=== PATIENT | male | born 1945 | race Caucasian/White ===

== ENCOUNTER 2017-12-11 07:41 | Day surgery (SDC) | payer OTHER ==
[2017-12-11] MEDS ORDERED: NS 500 ML IV ONE (07:44)
[2017-12-11] MEDS ORDERED: BENZOCAINE UNIT DOSE SPRAY HURRICAINE MM ONE (07:44)
[2017-12-11] MEDS ORDERED: MIDAZOLAM 2 MG/2 ML VIAL IVP ONE (07:44)
[2017-12-11] MEDS ORDERED: fentaNYL 100 MCG/2 ML INJ IVP ONE (07:44)
[2017-12-11] MEDS ORDERED: ATROPINE SULFATE 1 MG/10 ML SYR ONE (08:15)
--- NOTE | 2017-12-11 08:45 | PDANEPAE ---
ANE History of Present Illness CHARLES ANE Past Medical History - Cardiovascular History Hx Arrhythmias: No Hx CHF / Valvular Disease: Yes - Pulmonary History Hx Oxygen in Use at Home: No Hx Sleep Apnea: No - Renal History Hx Renal Disorders: Yes - Neurological & Psychiatric Hx Neurological / Psychiatric History Comment: BPV ANE Review of Systems Review of systems is: negative Review of Systems: - Exercise capacity METS (RN): 4 METS ANE Patient History - Allergies Allergies/Adverse Reactions: KIWEIT Allergy (Intermediate, Uncoded 04/30/12 15:49) LIPS AND TONGUE ESTES SWORDFISH Allergy (Intermediate, Uncoded 04/30/12 15:49) LIP AND TONGUE ESTES POLLEN Allergy (Mild, Uncoded 04/30/12 15:49) NASAL CONGESTION - Home Medications Home medications: home medication list seen and reviewed Home Medications: No Medications [No Meds] 1 ea [facility] 04/23/12 [Last Taken Unknown] - NPO status NPO Status: no food or drink >8 hours - Anes Hx Anes Hx: no prior problems - Smoking Hx Smoking Status: Former smoker - Family Anes Hx Family Anes Hx: none ANE Labs/Vital Signs - Vital Signs Vital Signs: reviewed preoperatively; see RN documention for details Height: 175.26 cm Weight: 67.132 kg ANE Physical Exam - Airway Neck exam: FROM Mallampati Score: Class 1 Mouth exam: normal dental/mouth exam - Pulmonary Pulmonary: no respiratory distress - Cardiovascular Cardiovascular: regular rate and rhythym - ASA Status ASA Status: II ANE Anesthesia Plan Total IV Anesthesia: Yes Urgent/Emergent Case: Ross thacker completed preop but documented later for safe timely pt care
--- NOTE | 2017-12-11 08:45 | POSTANESTH ---
Post Anesthetic Evaluation Cardiovascular Status: Similar to Pre-Op Cond Respiratory Status: Normal, Stable, Similar to Pre-op Cond. Level of Consciousness/Mental Status: Can Participate in Eval, Moderately Sleepy Pain Control: Adequate, Prn Tx Ordered Nausea/Vomiting Control: Adequate, Prn Tx Ordered Complications Possibly Related to Anesthesia: None Noted
[2017-12-11] MEDS ORDERED: PROPOFOL 200 MG/20 ML VIAL ONE ×2 (08:53→09:23)
--- NOTE | 2017-12-11 09:05 | PDHPUP ---
History & Physical Update H&P update statement: This history and physical update is based on an assessment of the patient which was completed after admission or registration (within 24 hours), but prior to the surgery/procedure. H&P update: H&P reviewed & patient examined, no change in patient's condition since H&P completed (Reviewed Dr. Alcaraz's recent office note)
--- NOTE | 2017-12-11 11:25 | ECHO ---
[email or web address] [place] [id number] Main: [phone] Fax: Transthoracic Echocardiogram Name: HILARIO GARZA MR#: [id number] Study Date: 12/11/2017 Study Time: 08:49 AM Date of : 1945 Age: 72 year(s) Height: ( ) Weight: ( ) BSA: Gender: Male Examination: CHARLES Indication: Eval Mitral Valve Image Quality: Contrast: Requested by: Karley Meier BP: 128 mmHg/79 mmHg Heart Rate: Rhythm: Normal sinus rhythm Indication: Eval Mitral Valve Procedure Staff Senior Software Engineer Analytics: Barak Hernandez RDCS Reading Physician: Karley Meier MD Requesting Provider: Chris Alcaraz Measurements: Chambers Valvular Assessment AV/MV Valvular Assessment TV/PV Normal Normal Normal Name Value Range Name Value Range Name Value Range LVOTd 2.1 cm 2.1 cm mm MV meanP mmHg ( - ) TR Vmax: 1.11 mm/s ( - ) LVEF (BP): 52 % (>=55 %) TR PGmax: 5 mmHg ( - ) EF Range: 50-55 % syst. PAP: 10 mmHg ( - ) Continued Measurements: Valvular Assessment AV/MV Valvular Assessment TV/PV Name Value Name Value MV Annulus: 3.4 cm CVP (est.): 5 mmHg MV VTI: 177.00 cm MR ERO: 0.270 cm2 MR PISA radius: 8 mm MR Reg. Volume: 46 ml MR Reg. Fraction: 3 % Findings: Left Ventricle: Low normal left ventricular systolic function. The ejection fraction is estimated to be 50-55 %. Right Ventricle: Normal size right ventricle. Normal RV function. Left Atrium: The left atrium is mildly dilated. Right Atrium: The right atrium is normal in size. Patient: HILARIO GARZA Study Date: 12/11/2017 Page 1 of 2 08:49 AM Mitral Valve: Moderate to severe mitral regurgitation. There is mild prolapse of the anterior and posterior mitral valve. The most prominent prolapse is of the P2 leaflet. There is no obvious pulmonary vein reversal. ER0 is 0.27 cm2. Regurgitant volume 46 mL. Aortic Valve: The aortic valve is normal in appearance and function. The aortic valve is tri-leaflet. Tricuspid Valve: The tricuspid valve appears normal. Mild tricuspid regurgitation is present. Pulmonic Valve: The pulmonic valve is normal in appearance and function. Pericardium: No pericardial effusion. (No Signature Object) Patient: HILARIO GARZA Study Date: 12/11/2017 Page 2 of 2 08:49 AM [id number]
== END 2017-12-11 18:43 | disposition home or self-care (01) ==
LOC: FCATH 07:41
PROVIDERS: ATTEND Internal Medicine Cardiovascular Disease
PROC: B246ZZ4 Ultrasonography of Right and Left Heart, Transesophageal (ICD-10-PCS; principal; 2017-12-11)
DX: R00.2 Palpitations (principal); I34.0 Nonrheumatic mitral (valve) insufficiency
CPT/HCPCS: J0461; J2704

== ENCOUNTER 2018-04-21 11:44 | Inpatient (IN) | payer OTHER ==
[2018-04-21] MEDS ORDERED: diphenhydrAMINE 25 MG CAP PO ONE (11:47)
[2018-04-21] MEDS ORDERED: ASPIRIN EC 325 MG TAB PO ONE (11:47)
[2018-04-21] MEDS ORDERED: NS 1,000 ML IV ONE (11:47)
[2018-04-21] MEDS ORDERED: DIAZEPAM 5 MG TAB PO ONE (11:47)
[2018-04-21] MEDS ORDERED: FAMOTIDINE 20 MG TAB PO ONE (11:47)
[2018-04-21 12:27] LABS: PLATELET COUNT 222 10^3/uL (150-400)
[2018-04-21 12:35] LABS: INR 0.97 (0.83-1.16); PROTIME(PATIENT) 13.1 SEC (12.0-15.0)
[2018-04-21] MEDS ORDERED: MIDAZOLAM 2 MG/2 ML VIAL ONE (12:45)
[2018-04-21] MEDS ORDERED: fentaNYL 100 MCG/2 ML INJ ONE (12:45)
[2018-04-21] MEDS ORDERED: IOPAMIDOL (ISOVUE-370) 150 ML BTL IV ONE (12:45)
[2018-04-21] MEDS ORDERED: LIDOCAINE 1% 300 MG/30 ML SDV ONE (12:45)
--- NOTE | 2018-04-21 12:48 | PDPROPOC ---
Sedation Plan of Care Sedation Plan of Care: vital signs stable, mental status noted, patient educated of risks, benefits, alternatives, patient can tolerate sedation ASA Classification: ASA 2 Planned drugs: fentanyl, midazolam Mallampati Score: Class 2 Mallampati Reference Image: Patient passed 3-3-2 rule?: Yes
--- NOTE | 2018-04-21 12:48 | PDHPUP ---
History & Physical Update H&P update statement: This history and physical update is based on an assessment of the patient which was completed after admission or registration (within 24 hours), but prior to the surgery/procedure. H&P update: H&P reviewed & patient examined, no change in patient's condition since H&P completed (Reviewed Dr. Alcaraz's office note dated 04/14/2018)
--- NOTE | 2018-04-21 13:21 | PDGENHP ---
History and Physical - History of Present Illness History Information - Allergies/Home Medication List Allergies/Adverse Reactions: kiwi Allergy (Verified 03/23/18 12:48) hopkins lips & tongue POLLEN Allergy (Uncoded 03/23/18 12:49) NASAL CONGESTION Home Medications: Aspirin [Aspirin 81mg (*)] 81 mg PO DAILY 03/16/18 [Last Taken 04/19/18] Cholecalciferol Vit D3 [Vitamin D3 (*)] 1,000 units PO DAILY 03/16/18 [Last Taken 04/20/18] Finasteride [Proscar 5 MG (*)] 5 mg PO DAILY 03/16/18 [Last Taken 04/21/18] Tamsulosin HCl [Flomax 0.4 MG (*)] 0.4 mg PO BID 03/16/18 [Last Taken 04/20/18] - Social History Smoking Status: Former smoker Review of Systems Review of Systems: Physical Exam Physical Exam: Lab Data & Imaging Review 04/21/18 12:10 04/21/18 12:10 WBC 3.62 10^3/uL (3.80-9.50) L 04/21/18 12:10 RBC 4.71 10^6/uL (4.40-6.38) 04/21/18 12:10 Hgb 14.4 g/dL (13.7-17.5) 04/21/18 12:10 Hct 42.0 % (40.0-51.0) 04/21/18 12:10 MCV 89.2 fL (81.5-99.8) 04/21/18 12:10 MCH 30.6 pg (27.9-34.1) 04/21/18 12:10 MCHC 34.3 g/dL (32.4-36.7) 04/21/18 12:10 RDW 12.7 % (11.5-15.2) 04/21/18 12:10 Plt Count 222 10^3/uL (150-400) 04/21/18 12:10 MPV 11.0 fL (8.7-11.7) 04/21/18 12:10 Neut % (Auto) 60.8 % (39.3-74.2) 04/21/18 12:10 Lymph % (Auto) 30.9 % (15.0-45.0) 04/21/18 12:10 [place] % (Auto) 6.1 % (4.5-13.0) 04/21/18 12:10 Eos % (Auto) 1.1 % (0.6-7.6) 04/21/18 12:10 Baso % (Auto) 0.8 % (0.3-1.7) 04/21/18 12:10 Nucleat RBC Rel Count 0.0 % (0.0-0.2) 04/21/18 12:10 Absolute Neuts (auto) 2.20 10^3/uL (1.70-6.50) 04/21/18 12:10 Absolute Lymphs (auto) 1.12 10^3/uL (1.00-3.00) 04/21/18 12:10 Absolute Monos (auto) 0.22 10^3/uL (0.30-0.80) L 04/21/18 12:10 Absolute Eos (auto) 0.04 10^3/uL (0.03-0.40) 04/21/18 12:10 Absolute Basos (auto) 0.03 10^3/uL (0.02-0.10) 04/21/18 12:10 Absolute Nucleated RBC 0.00 10^3/uL (0-0.01) 04/21/18 12:10 Immature Gran % 0.3 % (0.0-1.1) 04/21/18 12:10 Immature Gran # 0.01 10^3/uL (0.00-0.10) 04/21/18 12:10 PT 13.1 SEC (12.0-15.0) 04/21/18 12:10 INR 0.97 (0.83-1.16) 04/21/18 12:10 Sodium 141 mEq/L (135-145) 04/21/18 12:10 Potassium 4.2 mEq/L (3.3-5.0) 04/21/18 12:10 Chloride 111 mEq/L (97-110) H 04/21/18 12:10 Carbon Dioxide 23 mEq/l (22-31) 04/21/18 12:10 Anion Gap 7 mEq/L (6-14) 04/21/18 12:10 BUN 22 mg/dL (7-23) 04/21/18 12:10 Creatinine 0.8 mg/dL (0.7-1.3) 04/21/18 12:10 Estimated GFR > 60 04/21/18 12:10 Glucose 95 mg/dL (70-100) 04/21/18 12:10 Calcium 9.4 mg/dL (8.5-10.4) 04/21/18 12:10 Magnesium 2.0 mg/dL (1.6-2.3) 04/21/18 12:10 Triglycerides 54 mg/dL (40-150) 04/21/18 12:10 Cholesterol 191 mg/dL (140-220) 04/21/18 12:10 Cholesterol Risk Factr 0.5 (0.2-1.0) 04/21/18 12:10 LDL Cholesterol, Calc 112 mg/dL (80-100) H 04/21/18 12:10 LDL Risk Factor 0.8 (0.2-1.0) 04/21/18 12:10 VLDL Cholesterol 11 mg/dL (8-25) 04/21/18 12:10 Non-HDL Cholesterol 123 mg/dL (90-129) 04/21/18 12:10 HDL Cholesterol 68 mg/dL (40-65) H 04/21/18 12:10 LDL/HDL Ratio 1.65 RATIO (1.00-3.64) 04/21/18 12:10 Cholesterol/HDL Ratio 2.81 RATIO (1.00-4.97) 04/21/18 12:10 Patient ABO/Rh O POSITIVE 04/21/18 12:10 Antibody Screen NEGATIVE 04/21/18 12:10
--- NOTE | 2018-04-21 14:02 | PDDXCAT ---
Diagnostic Cath Note - . Date: 04/21/18 Sheeter Machine Operator: Hardeep Indication: other (pre mitral valve surgery. Class II CHF) - Procedure Access: right groin - Materials Left Heart Cath size: 6F Left Heart Cath materials: standard multipack (JL4, JR4, pigtail) - Findings-Left Heart Catheterization LM: Short. No significant disease. Bifurcates into the LAD and left circumflex. LAD: Reaches the apex. 3 large diagonals. There is no significant coronary disease in the LAD or any of its diagonal branches. LCX: Left dominant system. Large circumflex with 3 obtuse marginal branches. No significant coronary disease in the circumflex or its branches. RCA: Moderate size non dominant vessel without coronary disease. EDP: 19 LVEF: 55%. Moderate to severe mitral regurgitation Wall motion: Normal - Findings-Right Heart Catheterization AO: 122/63. No gradient upon pullback of the catheter from the left ventricle to the aorta. Complications: None Estimated blood loss: <50ml Closure method: Angioseal Assessment: Normal coronary arteries in this left dominant system. Severe mitral regurgitation. Plan: Admit for elective mitral valve repair/replacement
[2018-04-21] MEDS ORDERED: ATROPINE SULFATE 1 MG/10 ML SYR IVP PRN (14:03)
[2018-04-21] MEDS ORDERED: NITROGLYCERIN 0.4 MG BTL SL PRN (14:03)
[2018-04-21] MEDS ORDERED: HYDROCODONE/APAP 5/325 TAB PO PRN (14:03)
[2018-04-21] MEDS ORDERED: OXYCODONE/APAP 5/325 TAB PO PRN (14:03)
[2018-04-21] MEDS ORDERED: ONDANSETRON 4 MG/2 ML VIAL IVP PRN (14:03)
[2018-04-21] MEDS ORDERED: TEMAZEPAM 15 MG CAP PO PRN (14:26)
[2018-04-21] MEDS: TAMSULOSIN HCL 0.4 MG CAP PO SCH (20:01)
[2018-04-21] MEDS ORDERED: CHLORHEXIDINE GLUC HIBICLENS 118 ML BTL TP SCH (21:00)
[2018-04-22] MEDS ORDERED: AMINOCAPROIC ACID 5 GM/20 ML VIAL IV ONE (06:00)
[2018-04-22] MEDS ORDERED: SODIUM BICARBONATE 20 MEQ, LIDOCAINE 1% 10 ML in NORMOSOL-R 1,000 ML MISC ONE (06:00)
[2018-04-22] MEDS ORDERED: PHENYLEPHRINE HCL 50 MG in NS 250 ML IV ONE (06:00)
[2018-04-22] MEDS ORDERED: NS 1,000 ML IV ONE (06:00)
[2018-04-22] MEDS ORDERED: MUPIROCIN 2% 22 GM OINT NS ONE (06:00)
[2018-04-22] MEDS ORDERED: niCARdipine/NACL 200 ML IV ONE (06:00)
[2018-04-22] MEDS ORDERED: ceFAZolin 2 GM/DEXTROSE 100 ML IV ONE (06:00)
[2018-04-22] MEDS ORDERED: INSULIN REGULAR HUMAN 100 UNIT in NS 100 ML IV ONE (06:00)
[2018-04-22] MEDS ORDERED: NOREPINEPHRINE BITARTRATE 16 MG in NS 250 ML IV ONE (06:00)
[2018-04-22] MEDS ORDERED: CITRATE DEXTROSE SOLN 500 ML BAG MISC ONE (06:00)
[2018-04-22] MEDS ORDERED: MANNITOL 25% 12.5 GM/50 ML VIAL IVP ONE (06:00)
--- NOTE | 2018-04-22 06:36 | PDHPUP ---
History & Physical Update H&P update statement: This history and physical update is based on an assessment of the patient which was completed after admission or registration (within 24 hours), but prior to the surgery/procedure. H&P update: H&P reviewed & patient examined (see clinic H&P in paper chart), no change in patient's condition since H&P completed H&P changes: [facility] neg for obstructive CAD. Plan MICS MV rpr/replace.
[2018-04-22] MEDS ORDERED: LR 1,000 ML IV ONE (06:38)
[2018-04-22] MEDS ORDERED: CALCIUM CHLORIDE 1 GM/10 ML INJ ONE ×2 (06:43→06:45)
[2018-04-22] MEDS ORDERED: MILRINONE/DEXTROSE/100 ML BAG IV ONE (06:43)
[2018-04-22] MEDS ORDERED: PROTAMINE SULFATE 50 MG/5 ML VIAL IVP ONE (06:43)
[2018-04-22] MEDS ORDERED: NA BICARBONATE 50 MEQ/50 ML VIAL ONE ×2 (06:43→14:19)
[2018-04-22] MEDS ORDERED: ADENOSINE 6 MG/2 ML VIAL ONE (06:44)
[2018-04-22] MEDS ORDERED: DOPamine/DEXTROSE 400 MG/250 ML BAG IV ONE (06:44)
[2018-04-22] MEDS ORDERED: AMIODARONE HCL 150 MG/3 ML VIAL ONE ×2 (06:44→06:45)
[2018-04-22] MEDS ORDERED: NITROGLYCERIN/D5W 50 MG/250 ML BOTTLE IV ONE (06:44)
[2018-04-22] MEDS ORDERED: niCARdipine/NACL/200 ML BAG IV ONE (06:44)
[2018-04-22] MEDS ORDERED: HEPARIN 10,000 UNIT/10 ML MDV (1,000 UNIT/ML) ONE ×2 (06:44→06:45)
[2018-04-22] MEDS ORDERED: LIDOCAINE 2% 100 MG/5 ML SYR ONE ×2 (06:45→08:22)
[2018-04-22] MEDS ORDERED: ALBUMIN 5% 250 ML BOTTLE IV ONE ×2 (06:45→11:56)
[2018-04-22] MEDS ORDERED: CITRATE DEXTROSE SOLN 500 ML BAG ONE (06:45)
[2018-04-22] MEDS ORDERED: MAGNESIUM SULFATE 1 GM/2 ML VIAL ONE (06:46)
[2018-04-22] MEDS ORDERED: methylPREDNISolone SOD SUCC 1 GM/8 ML VIAL ONE (06:46)
--- NOTE | 2018-04-22 06:57 | PDMN ---
Medical Necessity Medical necessity: Pt meets inpt criteria per MD order and [facility] S-290, Cardiac Valve Replacement or Repair, Medicare inpt only surgery, CPT 61193. 72 y/o admitted for mitral valve replacement/repair, anticipate>2MN for surg/post-op care.
[2018-04-22] MEDS ORDERED: EPINEPHrine 1 MG/ML INJ ONE (08:07)
[2018-04-22] MEDS ORDERED: MIDAZOLAM 2 MG/2 ML VIAL IVP ONE (08:09)
--- NOTE | 2018-04-22 08:11 | PDANEPAE ---
ANE History of Present Illness MR s/f mini MRV ANE Past Medical History - Cardiovascular History Hx Hypertension: No Hx Arrhythmias: Yes Hx Chest Pain: No Hx Coronary Artery / Peripheral Vascular Disease: No Hx CHF / Valvular Disease: Yes Hx Palpitations: Yes Cardiovascular History Comment: States frequent irregular heartbeat, mostly PVC' s - Pulmonary History Hx COPD: No Hx Asthma/Reactive Airway Disease: No Hx Recent Upper Respiratory Infection: No Hx Oxygen in Use at Home: No Hx Sleep Apnea: No Sleep Apnea Screening Result - Last Documented: Negative - Neurologic History Hx Cerebrovascular Accident: No Hx Seizures: No Hx Dementia: No Neurologic History Comment: occasional optical migranes. benign paroxysmal positional veritgo - Endocrine History Hx Diabetes: No - Renal History Hx Renal Disorders: Yes Renal History Comment: 3 episodes of kidney stones. enlarged prostate - Liver History Hx Hepatic Disorders: No - Neurological & Psychiatric Hx Hx Neurological and Psychiatric Disorders: No Neurological / Psychiatric History Comment: BPV - Cancer History Hx Cancer: No - Congenital Disorder History Hx Congenital Disorders: No - GI History Hx Gastrointestinal Disorders: No - Other Health History Other Health History: wears glasses - Chronic Pain History Chronic Pain: No - Surgical History Prior Surgeries: left knee cartilage removal. appy as a child. T&A as a child ANE Review of Systems Review of Systems: - Exercise capacity METS (RN): 5 METS ANE Patient History - Allergies Allergies/Adverse Reactions: kiwi Allergy (Verified 03/23/18 12:48) hopkins lips & tongue POLLEN Allergy (Uncoded 03/23/18 12:49) NASAL CONGESTION - Home Medications Home Medications: Aspirin [Aspirin 81mg (*)] 81 mg PO DAILY 03/16/18 [Last Taken 04/19/18] Cholecalciferol Vit D3 [Vitamin D3 (*)] 1,000 units PO DAILY 03/16/18 [Last Taken 04/20/18] Finasteride [Proscar 5 MG (*)] 5 mg PO DAILY 03/16/18 [Last Taken 04/21/18] Tamsulosin HCl [Flomax 0.4 MG (*)] 0.4 mg PO DAILY 03/16/18 [Last Taken 04/20/18 ] - NPO status NPO Since - Liquids (Date): 04/22/18 NPO Since - Liquids (Time): 00:00 NPO Since - Solids (Date): 10/24/18 NPO Since - Solids (Time): 00:00 - Anes Hx Anes Hx: no prior problems - Smoking Hx Smoking Status: Former smoker Marijuana use: No - Alcohol Use Alcohol Use: Rarely - Family Anes Hx Family Anes Hx: none Family Hx Anesthesia Complications: none ANE Labs/Vital Signs - Labs Result Diagrams: 04/21/18 12:10 04/21/18 12:10 - Vital Signs Blood Pressure: 117/61 Heart Rate: 60 Respiratory Rate: 12 O2 Sat (%): 92 Height: 175 cm Weight: 69.1 kg ANE Physical Exam - Airway Neck exam: FROM Mallampati Score: Class 2 Mouth exam: normal dental/mouth exam - Pulmonary Pulmonary: no respiratory distress - Cardiovascular Cardiovascular: regular rate and rhythym - ASA Status ASA Status: II ANE Anesthesia Plan Anesthesia Plan: general endotracheal anesthesia Lines/Monitors: arterial line, central line, CHARLES
[2018-04-22] MEDS ORDERED: MIDAZOLAM 2 MG/2 ML VIAL ONE ×2 (08:12→08:19)
[2018-04-22] MEDS ORDERED: REMIFENTANIL HCL 1 MG VIAL ONE (08:19)
[2018-04-22] MEDS ORDERED: PROPOFOL/EMULSION 500 MG/50 ML BOTTLE IV ONE (08:19)
[2018-04-22] MEDS ORDERED: fentaNYL 250 MCG/5 ML INJ ONE (08:19)
[2018-04-22] MEDS ORDERED: ROCURONIUM 100 MG/10 ML VIAL ONE (08:21)
[2018-04-22] MEDS ORDERED: LIDOCAINE HCL 160 MG/4 ML LTA KIT TP ONE (08:22)
[2018-04-22] MEDS ORDERED: PHENYLEPHRINE HCL 100 MCG/ML SYR ONE (08:23)
[2018-04-22] MEDS ORDERED: ePHEDrine SULFATE 25 MG/5 ML SYR ONE (08:23)
[2018-04-22] MEDS ORDERED: ONDANSETRON 4 MG/2 ML VIAL ONE (08:23)
[2018-04-22] MEDS ORDERED: DEXAMETHASONE 4 MG/ML VIAL ONE ×2 (08:23)
[2018-04-22] MEDS ORDERED: DEXMEDETOMIDINE HCL 400 MCG in NS 100 ML IV SCH (11:30)
[2018-04-22] MEDS: TAMSULOSIN HCL 0.4 MG CAP PO SCH (12:35)
[2018-04-22] MEDS: ASPIRIN 81 MG CHEWABLE TAB PO SCH (12:35)
[2018-04-22] MEDS: BUPIVACAINE 0.25% 30 ML SDV ONE ×4 (12:36→13:31)
[2018-04-22] MEDS: ceFAZolin 1 GM VIAL ONE ×2 (12:37→13:00)
[2018-04-22] MEDS ORDERED: KETOROLAC 30 MG/1 ML SDV ONE (12:45)
[2018-04-22] MEDS ORDERED: SUGAMMADEX SODIUM 200 MG/2 ML VIAL IVP ONE (12:57)
[2018-04-22] MEDS ORDERED: POLYETHYLENE GLYCOL 3350 17 GM PKT PO PRN (13:11)
[2018-04-22] MEDS ORDERED: PANTOPRAZOLE SODIUM 40 MG VIAL IVP ONE (13:11)
[2018-04-22] MEDS ORDERED: SODIUM CL NASAL 45 ML BTL EACHNARE PRN (13:11)
[2018-04-22] MEDS ORDERED: MEPERIDINE 25 MG/0.5 ML AMP IVP PRN (13:11)
[2018-04-22] MEDS ORDERED: D50W 25 GM/50 ML SYR IVP PRN (13:11)
[2018-04-22] MEDS ORDERED: LACTULOSE 20 GM/30 ML UDCUP PO PRN (13:11)
[2018-04-22] MEDS ORDERED: BISACODYL 10 MG SUPP PR PRN (13:11)
[2018-04-22] MEDS ORDERED: CEPACOL LOZENGE PO PRN (13:11)
[2018-04-22] MEDS ORDERED: niCARdipine/NACL 200 ML IV PRN (13:11)
[2018-04-22] MEDS ORDERED: ONDANSETRON DISINTEGRATING 4 MG TAB PO PRN (13:11)
[2018-04-22] MEDS ORDERED: MAGNESIUM HYDROXIDE 30 ML UDCUP PO PRN (13:11)
[2018-04-22] MEDS ORDERED: ONDANSETRON 4 MG/2 ML VIAL IVP PRN (13:11)
[2018-04-22] MEDS ORDERED: METOCLOPRAMIDE 10 MG/2 ML VIAL IVP PRN ×2 (13:11→16:32)
[2018-04-22] MEDS ORDERED: NS 1,000 ML IV SCH (13:15)
[2018-04-22] MEDS ORDERED: oxyCODONE IR 5 MG TAB PO PRN (13:22)
--- NOTE | 2018-04-22 14:12 | GOP ---
DATE OF OPERATION: 04/22/2018 SURGEON: Chris Alcaraz DO FIELD ADJUSTER: Nehal Holland PA-C. PREOPERATIVE DIAGNOSIS: Severe mitral insufficiency. POSTOPERATIVE DIAGNOSIS: Severe mitral insufficiency. PROCEDURE PERFORMED: 1. Right thoracotomy MICS mitral valve repair with chordal reconstruction and 34 Physio annuloplasty ring. 2. Left common femoral artery and vein cannulation with primary repair. FINDINGS: Patient presented with a longstanding history of symptomatic mitral insufficiency. He fin ally consented for surgery, preferred minimally invasive approach. DESCRIPTION OF PROCEDURE: He was brought to the operating room, intubated with a double-lumen endotr acheal tube. Radial and central lines were placed. The left common femoral artery was prepped. He was prepped and draped in sterile classical manner with the right side slightly elevated and defibril lator patches externally. A 4th intercostal space anterior axillary 5 cm incision was placed down through the skin, subcutaneou s tissue. The chest was entered. Soft tissue retractor was placed. We then opened the pericardium 3 cm anterior to the phrenic nerve down to the diaphragm and tacked that to the retractor. The right lung had been decompressed by Anesthesia. We then exposed the left common femoral artery and vein, which were cannulated under echo and fluoroscopic guidance without difficulty. Good flows without re sistance were noted. Venous cannulation was placed in superior vena cava. We then initiated cardiopulmonary bypass and developed the [place] groove and placed a Manisha cla mp to a more proximal stab wound across the aorta with intermittent antegrade cardioplegia administer ed throughout the procedure. Arrest was obtained. We then exposed the mitral valve through the right superior pulmonary vein. A Kiana retractor system was utilized with good exposure of the valve. 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 All segments were i nspected and he had obvious prolapse of P2 without ruptured chords. We then put in circumferential a nnuloplasty sutures and decided to preserve his P2, rather than triangular resect. I then created a pledgeted chordae to the posterior segment of the anterior papillary muscle and brou ght that through the edge of P2 in several sites and loosely tied it, approximating it to the height of P1. We then tested it with saline and there was absolutely no regurgitation. A dye test confirme d at least 8 to 10 mm of coaptation. There was a small cleft between P2 and P3, which was closed wit h Maribel-Cristian as well. I then secured multiple knots on the new chord and then ran that back through th e edge of the leaflets several times, and tied it to tuck the knot cluster away from the outflow trac t. I then sized the patient for a 34 Physio ring, which was secured with Cor-Knots. Testing the oj tricle revealed absolutely no regurgitation with an excellent coaptation line. The patient had no ev idence of ROMAN preoperatively and a somewhat dilated ventricle. I then closed the left atrium in standard fashion with CO2 infused. I then through the transverse si nus placed a 40 mm atrial clip across the base of the appendage. We then placed 2 pacing wires, brou ght them through a separate stab wound. The cross-clamp was removed with the patient in deep Trendel enburg and aspiration on the aortic vent. We allowed the patient to rewarm and de-air before trying to wean him from bypass. He was then easily weaned from bypass. Dr. Meier confirmed no evidence of r egurgitation or ROMAN on echo with good biventricular function. The heparin was reversed with protamine. The cannula was removed and oversewn. Doppler pulses were intact to the left leg, as was distal palpable pulsation. The chest was closed with intercostals. 0 .25% Marcaine with epinephrine was used to infiltrate the intercostal spaces. All wounds were closed in standard fashion. Patient was extubated in the OR and returned to ICU in stable condition. /[id number]/MODL
[2018-04-22] MEDS: ceFAZolin 2 GM/DEXTROSE 100 ML IV SCH ×2 (14:18→22:01)
[2018-04-22] MEDS: INSULIN REGULAR HUMAN 100 UNIT in NS 100 ML IV SCH ×2 (14:32→18:19)
[2018-04-22] MEDS ORDERED: NA BICARBONATE 50 MEQ/50 ML VIAL IV ONE (15:00)
[2018-04-22] MEDS: ALBUMIN 5% 250 ML IV PRN ×2 (15:00→16:20)
--- NOTE | 2018-04-22 15:58 | GCON ---
DISTRICT EXTENSION SERVICE AGENT CONSULTATION REASON FOR ADMISSION: Status post minimally invasive mitral valve replacement. HISTORY OF PRESENT ILLNESS: The patient is a 72-year-old white male with a past medical history of h ypertension, mitral regurg, Raynaud syndrome, essential tremor. He is examined postoperatively after receiving a minimally invasive mitral valve replacement. The patient is currently somewhat sedated but not on mechanical ventilation. All history is gleaned from the medical record. REVIEW OF SYSTEMS: Ten-point review of systems was attempted, but unable secondary to sedation. PAST MEDICAL HISTORY: Again significant for positional vertigo, hypertension, hyperlipidemia, mitral regurgitation, kidney stones, Raynaud syndrome, and essential tremor. PAST SURGICAL HISTORY: Appendectomy and a tonsillectomy. MEDICATIONS: Medications at home include aspirin, finasteride, Rapaflo, and vitamin D. SOCIAL HISTORY: Previous heavy smoker, none for over 40 years. He drinks alcohol 2-3 drinks per day . He is , has excellent family support. FAMILY HISTORY: Noncontributory. PHYSICAL EXAM: VITAL SIGNS: Blood pressure is 117/61, pulse 60, respirations 12. Temperature is 36 .5, oxygen saturation 92% on room air. GENERAL: He is a well-developed, well-nourished, elderly whi te male who is resting comfortably, in no acute distress. HEENT: Eyes are PERRLA, EOMI. Throat nova ws no erythema or tonsillar hypertrophy. NECK: Supple. There is no cervical adenopathy. HEART: R egular rate and rhythm, with a 2/6 systolic murmur at the left sternal border, without radiation. STEPH NGS: Diminished breath sounds but no wheeze. ABDOMEN: Soft, nontender. Bowel sounds are present i n all 4 quadrants. EXTREMITIES: No clubbing, cyanosis, or edema. LABORATORIES: White count is 3.6, hemoglobin 14, hematocrit 42. Platelet count is 222. INR is 0.97 . Sodium 141, potassium 4.2, chloride 111, CO2 23, BUN 22, creatinine 0.8. Glucose is 95. IMPRESSION: 1. Mitral regurgitation. 2. Status post minimally invasive mitral valve repair with chordal reconstruction and a 34 Physio an nuloplasty ring. 3. Respiratory, stable off mechanical ventilation. 4. History of vertigo. 5. History of hypertension. 6. Hyperlipidemia. 7. Raynaud syndrome. RECOMMENDATIONS: 1. Adequate pain control. 2. DVT and PE prophylaxis, holding anticoagulation for now. 3. Stress ulcer prophylaxis. 4. Early ambulation. 5. PT and OT. 6. Speech to see. /[id number]/MODL
--- NOTE | 2018-04-22 16:26 | ASMTCASEMG ---
Living Arrangements What is your living Answers: With Spouse arrangement? Who do you live with? Type Of Residence What kind of residence do Answers: House you live in? Discharge Plan Comments Coordination Status Comments Notes: Patient is a 72yo male who was admitted for severe mitral insufficiency and the need for surgery. OT/PT have been ordered for patient. Patient is most likely going to need cardiac rehab. Surgery was today with Dr. Alcaraz. D/C needs TBD. CM will follow. Date Signed: 04/22/2018 04:25 PM Electronically Signed By:Leatha Nava LCSW
[2018-04-22] MEDS ORDERED: HYDROmorphONE/DILAUDID 6 MG/30 ML PCA IV ONE (16:30)
[2018-04-22] MEDS ORDERED: HYDROmorphONE/DILAUDID 6 MG/30 ML PCA IV PRN ×2 (16:32→17:38)
[2018-04-22] MEDS ORDERED: NALOXONE HCL 0.4 MG/ML INJ IVP PRN ×2 (16:32→17:38)
--- NOTE | 2018-04-22 16:51 | POSTANESTH ---
Post Anesthetic Evaluation Cardiovascular Status: Similar to Pre-Op Cond, Tx Over/Under Hydration Respiratory Status: Normal, Stable, Tx Decrease in SpO2 Level of Consciousness/Mental Status: Can Participate in Eval, Mildly Sleepy, Arousable Pain Control: Adequate, Prn Tx Ordered Nausea/Vomiting Control: Adequate, Prn Tx Ordered Complications Possibly Related to Anesthesia: None Noted
[2018-04-22] MEDS ORDERED: KETOROLAC 15 MG/1 ML SDV IVP PRN (17:35)
[2018-04-22] MEDS: POTASSIUM Cl (KCl) 50 ML IV PRN ×2 (18:17→18:55)
[2018-04-22] MEDS: ACETAMINOPHEN 325 MG TAB PO SCH (18:22)
[2018-04-22] MEDS: KETOROLAC 15 MG/1 ML SDV IVP SCH ×2 (18:22→23:51)
[2018-04-22] MEDS: fentaNYL 100 MCG/2 ML INJ IVP PRN (20:42)
[2018-04-22] MEDS: MUPIROCIN 2% 22 GM OINT NS SCH (21:08)
[2018-04-23] MEDS: fentaNYL 100 MCG/2 ML INJ IVP PRN (00:03)
[2018-04-23] MEDS: ACETAMINOPHEN 325 MG TAB PO SCH ×5 (00:25→23:30)
[2018-04-23 04:11] LABS: PLATELET COUNT 111 10^3/uL (150-400)
[2018-04-23 04:14] LABS: INR 1.26 (0.83-1.16)
[2018-04-23] MEDS: KETOROLAC 15 MG/1 ML SDV IVP SCH ×4 (05:27→23:30)
[2018-04-23] MEDS: HEPARIN 5,000 UNIT/0.5 ML INJ SC SCH ×3 (05:28→20:45)
[2018-04-23] MEDS: ceFAZolin 2 GM/DEXTROSE 100 ML IV SCH ×3 (05:29→22:56)
--- NOTE | 2018-04-23 07:07 | SOAPPROG ---
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 Extubated in the OR. No vasoactive support. No sig volume overload. No tachyarrhythmias or backup pacing. Small apical PTX without active air leak. AF prophylaxis with BB as tolerated. Antithrombotic prophylaxis with Coumadin x 3 months, target INR 2-3, duration 3 months. Acute expected blood loss anemia - Stable. No transfusions required. Plan: Routine POD#1 orders re. wires, drains, orals and mobility. Keep CTs to pleurovac with suction at rest. Start Coumadin. 2.5 mg today. Tx to PCU. 04/23/18 07:03 Subjective: Doing ok. No dizziness or nausea. Adequate analgesia. Objective: Vital Signs Temp Pulse Resp BP Pulse Ox 36.5 C 68 17 106/55 L 97 04/22/18 22:00 04/23/18 06:00 04/23/18 06:00 04/23/18 06:00 04/23/18 06:00 Laboratory Results 04/23/18 03:56 04/23/18 03:56 04/22/18 04/23/18 04/24/18 05:59 05:59 05:59 Intake Total 950 1228 Output Total 425 1945 Balance 525 -717 PT 16.0 SEC (12.0-15.0) H 04/23/18 03:56 INR 1.26 (0.83-1.16) H 04/23/18 03:56 No gtts. HR and BP well controlled. Min suppl O2 req. Balanced I/Os. Min CTOP. CXR -> small rt apical PTX, no sig pulm vasc congestion, basilar atelectasis. Labs as expected. Physical Exam - Physical Exam General Appearance: alert, no apparent distress Respiratory: crackles (bases), other (michelle to pleurovac, serosang drainage, + tidal, small air leak with cough) Cardiac/Chest: regular rate, rhythm, other (Thoracot and access sites CDI. No palpable crepitus.) Abdomen: non-tender, soft Skin: warm/dry Extremities: swelling (trace) ICD10 Worksheet Patient Problems: Problems Problem Status Onset Acute blood loss anemia Acute Coronary artery disease excluded Acute S/P mitral valve repair Acute ~04/22/18 S/P thoracotomy Acute ~04/22/18 Myxomatous mitral valve regurgitation Chronic
[2018-04-23] MEDS: FINASTERIDE 5 MG TAB PO SCH (08:04)
[2018-04-23] MEDS: PANTOPRAZOLE SODIUM 40 MG TAB PO SCH (08:04)
[2018-04-23] MEDS: ASPIRIN 81 MG CHEWABLE TAB PO SCH (08:04)
[2018-04-23] MEDS: TAMSULOSIN HCL 0.4 MG CAP PO SCH (08:04)
[2018-04-23] MEDS: MUPIROCIN 2% 22 GM OINT NS SCH ×2 (08:05→20:45)
[2018-04-23] MEDS: traMADol 50 MG TAB PO PRN ×2 (08:54→14:50)
--- NOTE | 2018-04-23 09:24 | CPEKG ---
Test Reason : OPEN Blood Pressure : / mmHG Vent. Rate : 065 BPM Atrial Rate : 064 BPM P-R Int : 151 ms QRS Dur : 100 ms QT Int : 415 ms P-R-T Axes : 034 018 040 degrees QTc Int : 432 ms Sinus rhythm Low voltage, extremity leads Confirmed by Damien Whiet ([id number]) on 04/23/2018 9:23:43 AM Referred By: Confirmed By:Damien White
[2018-04-23] MEDS ORDERED: WARFARIN SODIUM 2.5 MG TAB PO ONE (16:00)
--- NOTE | 2018-04-23 16:31 | CPEKG ---
Test Reason : OPEN Blood Pressure : / mmHG Vent. Rate : 082 BPM Atrial Rate : 082 BPM P-R Int : 144 ms QRS Dur : 112 ms QT Int : 426 ms P-R-T Axes : 054 021 049 degrees QTc Int : 498 ms Sinus rhythm Ventricular bigeminy Low voltage, extremity leads Borderline prolonged QT interval Confirmed by Damien White ([id number]) on 04/23/2018 4:30:59 PM Referred By: Confirmed By:Damien White
[2018-04-23] MEDS: METOPROLOL TARTRATE 25 MG TAB PO SCH (21:16)
[2018-04-24] MEDS: ACETAMINOPHEN 325 MG TAB PO SCH ×3 (05:28→17:37)
[2018-04-24] MEDS: HEPARIN 5,000 UNIT/0.5 ML INJ SC SCH ×3 (05:28→21:01)
[2018-04-24 06:04] LABS: INR 1.39 (0.83-1.16); PROTIME(PATIENT) 17.2 SEC (12.0-15.0)
[2018-04-24] MEDS: traMADol 50 MG TAB PO PRN ×4 (06:44→21:01)
--- NOTE | 2018-04-24 07:03 | SOAPPROG ---
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 Extubated in the OR. Stable early postop course. Small apical PTX due to volume loss, not active air leak. AF prophylaxis with BB as tolerated. Antithrombotic prophylaxis with Coumadin x 3 months, target INR 2-3, duration 3 months. Acute expected blood loss anemia - Stable. No transfusions required. Plan: Remove TCPW. Consider removal chest tube later today. Cont metoprolol 12.5 mg BID. Cont coumadin 2.5 mg daily. Baseline postop echo. Cont inc activity as tolerated. Dispo - Home without services in 1-2 days. 04/24/18 07:01 Subjective: Comfortable. Ambulating without assist device. Hopeful for home this weekend. Objective: Vital Signs Temp Pulse Resp BP Pulse Ox 36.6 C 67 15 102/68 97 04/24/18 05:30 04/24/18 05:30 04/24/18 05:30 04/24/18 05:30 04/24/18 05:30 Laboratory Results 04/23/18 03:56 04/24/18 05:20 04/23/18 04/24/18 04/25/18 05:59 05:59 05:59 Intake Total 1228 475 Output Total 1945 660 Balance -717 -185 PT 17.2 SEC (12.0-15.0) H 04/24/18 05:20 INR 1.39 (0.83-1.16) H 04/24/18 05:20 HR and BP well controlled on low dose metoprolol. Borderline suppl O2 req. CTOP approaching removal criteria. CXR -> min pulm vasc congestion, bibasilar atelectasis, tiny rt apical PTX. Keeps forgetting to void in bottle, UOP inaccurate. Is approaching baseline wt. Appropriate INR response. Physical Exam - Physical Exam General Appearance: alert, no apparent distress Respiratory: lungs clear (left side), other (coarse rt sided BS, CT to pleurovac , serosang drainage, no inducible air leak) Cardiac/Chest: regular rate, rhythm, other (rt thoracot and left groin CDI. Vwires intact.) Abdomen: non-tender, soft Skin: warm/dry Extremities: other (no visible edema) ICD10 Worksheet Patient Problems: Problems Problem Status Onset Acute blood loss anemia Acute Coronary artery disease excluded Acute S/P mitral valve repair Acute ~04/22/18 S/P thoracotomy Acute ~04/22/18 Myxomatous mitral valve regurgitation Chronic
[2018-04-24] MEDS: ASPIRIN 81 MG CHEWABLE TAB PO SCH (08:10)
[2018-04-24] MEDS: SENNOSIDES/DOCUSATE SODIUM TAB PO SCH ×2 (08:10→21:01)
[2018-04-24] MEDS: TAMSULOSIN HCL 0.4 MG CAP PO SCH (08:10)
[2018-04-24] MEDS: CHOLECALCIFEROL VIT D3 1,000 UNITS TAB PO SCH (08:10)
[2018-04-24] MEDS: FINASTERIDE 5 MG TAB PO SCH (08:10)
[2018-04-24] MEDS: PANTOPRAZOLE SODIUM 40 MG TAB PO SCH (08:29)
[2018-04-24] MEDS: METOPROLOL TARTRATE 25 MG TAB PO SCH ×2 (09:25→21:01)
[2018-04-24] MEDS: MUPIROCIN 2% 22 GM OINT NS SCH (09:26)
[2018-04-24] MEDS ORDERED: WARFARIN SODIUM 2.5 MG TAB PO ONE (16:00)
--- NOTE | 2018-04-24 17:31 | ECHO ---
[email or web address] [address] [address] Main: [phone] Fax: Transthoracic Echocardiogram Name: HILARIO GARZA MR#: [id number] Study Date: 04/24/2018 Study Time: 01:51 PM Date of : 1945 Age: 72 year(s) Height: 175.3 cm (69 in.) Weight: 70.31 kg (155 lb.) BSA: 1.85 m2 Gender: Male Examination: Echo Indication: Post MVrepair Image Quality: Contrast: Requested by: Nehal Holland BP: 124 mmHg/70 mmHg Heart Rate: Rhythm: Indication: Post MVrepair Procedure Staff Director Vaccine: Barak Hernandez RDCS Reading Physician: Karley Meier MD Requesting Provider: Chris Alcaraz Conclusions: Normal size left ventricle. Low normal left ventricular systolic function. The ejection fraction is estimated to be 50-55 %. There is paradoxic septal motion suggestive of bundle branch block, paced cardiac rhythm, or prior cardiac surgery. Normal size right ventricle. Normal RV function. S/P right thoracotomy mitral valve repair with chordal reconstruction and #34 ring. There is no regurgitation and no Mitral valve stenosis.. No pericardial effusion. Compared with 12/11/2017 mitral valve has been repaired. Measurements: Chambers Valvular Assessment AV/MV Valvular Assessment TV/PV Normal Normal Normal Name Value Range Name Value Range Name Value Range Ao Mirtha (MM): 2.8 cm (2.2 cm-3.7 AV Vmax: 1.28 m/s (1 m/s-1.7 TR Vmax: 2.93 mm/s ( - ) cm) m/s) TR PGmax: 34 mmHg ( - ) IVSd (2D): 1.1 cm (0.6 cm-1.1 AV maxP mmHg ( - ) syst. PAP: 39 mmHg ( - ) cm) LVOT Vmax: 0.94 m/s (0.7 m/s-1.1 PV Vmax: 0.95 m/s (0.6 m/s-0.9 LVDd (2D): 4.9 cm (4.2 cm-5.9 m/s) m/s) cm) MV E Vmax: 1.03 m/s ( - ) PV PGmax: 4 mmHg ( - ) LVDs (2D): 3.9 cm (2.1 cm-4 MV A Vmax: 0.87 m/s ( - ) cm) MV E/A: 1.18 ( - ) LVPWd (2D): 1.1 cm (0.6 cm-1 MV meanP mmHg ( - ) cm) EF Range: 50-55 % Continued Measurements: Chambers Valvular Assessment AV/MV Valvular Assessment TV/PV Patient: HILARIO GARZA Study Date: 04/24/2018 Page 1 of 2 01:51 PM Name Value Name Value Name Value LADs Lon.8 cm MV VTI: 38.50 cm CVP (est.): 5 mmHg LA Area: 19.6 cm2 Findings: Left Ventricle: Normal size left ventricle. Low normal left ventricular systolic function. The ejection fraction is estimated to be 50-55 %. There is paradoxic septal motion suggestive of bundle branch block, paced cardiac rhythm, or prior cardiac surgery. Right Ventricle: Normal size right ventricle. Normal RV function. Left Atrium: The left atrium is normal in size. Right Atrium: The right atrium is normal in size. Mitral Valve: S/P right thoracotomy mitral valve repair with chordal reconstruction and #34 ring. There is no regurgitation and no Mitral valve stenosis.. Aortic Valve: The aortic valve is tri-leaflet and functions normally. Tricuspid Valve: The tricuspid valve appears normal. There is no tricuspid valve regurgitation. Pulmonic Valve: The pulmonic valve is normal in appearance and function. Trivial pulmonic valve regurgitation. Aorta: The aorta is normal. Pericardium: No pericardial effusion. Exam Comments: (No Signature Object) Patient: HILARIO GARZA Study Date: 04/24/2018 Page 2 of 2 01:51 PM [id number]
[2018-04-25] MEDS: ACETAMINOPHEN 325 MG TAB PO SCH ×4 (00:57→18:01)
[2018-04-25] MEDS: HEPARIN 5,000 UNIT/0.5 ML INJ SC SCH ×3 (06:17→21:46)
[2018-04-25 07:04] LABS: INR 1.34 (0.83-1.16); PROTIME(PATIENT) 16.8 SEC (12.0-15.0)
[2018-04-25] MEDS: SENNOSIDES/DOCUSATE SODIUM TAB PO SCH ×2 (08:01→22:20)
[2018-04-25] MEDS: METOPROLOL TARTRATE 25 MG TAB PO SCH ×2 (08:01→21:45)
[2018-04-25] MEDS: ASPIRIN 81 MG CHEWABLE TAB PO SCH (08:01)
[2018-04-25] MEDS: CHOLECALCIFEROL VIT D3 1,000 UNITS TAB PO SCH (08:02)
[2018-04-25] MEDS: FINASTERIDE 5 MG TAB PO SCH (08:02)
[2018-04-25] MEDS: PANTOPRAZOLE SODIUM 40 MG TAB PO SCH (08:02)
[2018-04-25] MEDS: TAMSULOSIN HCL 0.4 MG CAP PO SCH (08:02)
[2018-04-25] MEDS: traMADol 50 MG TAB PO PRN (08:06)
--- NOTE | 2018-04-25 10:07 | SOAPPROG ---
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 Extubated in the OR. Stable early postop course. Small apical PTX due to volume loss, no active air leak. AF prophylaxis with BB as tolerated. Antithrombotic prophylaxis with Coumadin, target INR 2-3 with duration 3 months. INR 1.3 today. Baseline echo performed yesterday showed EF 50-55% with no MR/MS. Hypertension- Controlled with SBP 90-100's. On Metoprolol. Acute expected blood loss anemia - Stable. No transfusions required. Secondary thrombocytopenia d/t CPB- Improving with plt count 112k (111k). Deconditioning s/p surgery- Continue PT/OT. Encourage ambulation/IS. Plan: Coumadin 2.5 mg daily. Home without services tomorrow. D/c TLC. Subjective: "I slept a lot." Patient reports good pain control. He would like to go home tomorrow. Objective: Vital Signs Temp Pulse Resp BP Pulse Ox 36.7 C 67 14 93/53 L 94 04/25/18 07:35 04/25/18 07:35 04/25/18 07:35 04/25/18 07:35 04/25/18 07:35 Laboratory Results 04/25/18 06:20 04/24/18 05:20 04/24/18 04/25/18 04/26/18 05:59 05:59 05:59 Intake Total 475 100 Output Total 660 340 150 Balance -185 -240 -150 PT 16.8 SEC (12.0-15.0) H 04/25/18 06:20 INR 1.34 (0.83-1.16) H 04/25/18 06:20 Physical Exam - Physical Exam General Appearance: WD/WN, alert, no apparent distress Neck: supple Respiratory: lungs clear, decreased breath sounds (bases), other (no wheezing, rhonchi, rales. ) Cardiac/Chest: regular rate, rhythm, other (no murmurs, rubs, gallops. Right thoracotomy incision c/d/i. ) Abdomen: normal bowel sounds, non-tender, soft Skin: normal color, warm/dry Extremities: other (warm, mild lower extremity edema) Neuro/Psych: alert, normal mood/affect, oriented x 3 ICD10 Worksheet Patient Problems: Problems Problem Status Onset Acute blood loss anemia Acute Coronary artery disease excluded Acute S/P mitral valve repair Acute ~04/22/18 S/P thoracotomy Acute ~04/22/18 Myxomatous mitral valve regurgitation Chronic
--- NOTE | 2018-04-25 14:16 | ASMTCMCOM ---
CM Note CM Note Notes: 04/25/2018 Case Management Note Reviewed chart. PT recommending home and outpatient rehab. Case Management d/c poc: Cardiac outpatient rehab. Case Management to follow. Date Signed: 04/25/2018 02:15 PM Electronically Signed By:Sharyn Vora RN
[2018-04-25] MEDS ORDERED: WARFARIN SODIUM 2.5 MG TAB PO ONE (16:00)
[2018-04-26 04:04] LABS: INR 1.4 (0.83-1.16); PROTIME(PATIENT) 17.3 SEC (12.0-15.0)
[2018-04-26] MEDS: ACETAMINOPHEN 325 MG TAB PO SCH ×5 (04:06→23:27)
[2018-04-26] MEDS: HEPARIN 5,000 UNIT/0.5 ML INJ SC SCH ×3 (05:36→21:31)
[2018-04-26] MEDS: PANTOPRAZOLE SODIUM 40 MG TAB PO SCH (08:22)
[2018-04-26] MEDS: CHOLECALCIFEROL VIT D3 1,000 UNITS TAB PO SCH (08:22)
[2018-04-26] MEDS: METOPROLOL TARTRATE 25 MG TAB PO SCH ×2 (08:22→21:31)
[2018-04-26] MEDS: TAMSULOSIN HCL 0.4 MG CAP PO SCH (08:22)
[2018-04-26] MEDS: ASPIRIN 81 MG CHEWABLE TAB PO SCH (08:22)
[2018-04-26] MEDS: FINASTERIDE 5 MG TAB PO SCH (08:22)
[2018-04-26] MEDS: SENNOSIDES/DOCUSATE SODIUM TAB PO SCH ×2 (08:25→21:31)
--- NOTE | 2018-04-26 10:37 | SOAPPROG ---
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 Extubated in the OR. Stable early postop course. Small apical PTX persists. AF prophylaxis with BB. Antithrombotic prophylaxis with Coumadin, target INR 2-3 with duration 3 months. INR 1.4 today. Baseline echo showed EF 50-55% with no MR/MS. Bilateral infiltrates/atelectasis- Slightly worsening. Patient denies worsening cough but complains of more chest pain today. Will resume Toradol. Hypertension- Controlled with SBP 120's. On Metoprolol. Acute expected blood loss anemia - Stable. No transfusions required. Secondary thrombocytopenia d/t CPB- Stable with last plt count 112k (111k). Deconditioning s/p surgery- Continue PT/OT. Encourage ambulation/IS. Plan: Coumadin 2.5 mg. Resume Toradol. Home without services tomorrow. Subjective: Patient reports increased chest pain today. "I started feeling bad late last night." Objective: Vital Signs Temp Pulse Resp BP Pulse Ox 36.3 C 68 18 121/64 H 96 04/26/18 08:00 04/26/18 08:22 04/26/18 08:00 04/26/18 08:22 04/26/18 08:00 Laboratory Results 04/25/18 06:20 04/24/18 05:20 04/25/18 04/26/18 04/27/18 05:59 05:59 05:59 Intake Total 100 760 Output Total 340 1300 100 Balance -240 -540 -100 PT 17.3 SEC (12.0-15.0) H 04/26/18 03:27 INR 1.40 (0.83-1.16) H 04/26/18 03:27 Physical Exam - Physical Exam General Appearance: WD/WN, alert, no apparent distress Neck: supple Respiratory: lungs clear, decreased breath sounds (right base), other (no wheezing, rhonchi, rales. ) Cardiac/Chest: regular rate, rhythm (no murmurs, rubs, gallops. chest incision c/d/i. ) Abdomen: normal bowel sounds, non-tender, soft Skin: normal color, warm/dry Extremities: other (Warm, minimal lower extremity edema.) Neuro/Psych: alert, normal mood/affect, oriented x 3 ICD10 Worksheet Patient Problems: Problems Problem Status Onset Acute blood loss anemia Acute Coronary artery disease excluded Acute S/P mitral valve repair Acute ~04/22/18 S/P thoracotomy Acute ~04/22/18 Myxomatous mitral valve regurgitation Chronic
[2018-04-26] MEDS: KETOROLAC 15 MG/1 ML SDV IVP SCH ×3 (13:02→23:27)
[2018-04-26] MEDS ORDERED: WARFARIN SODIUM 2.5 MG TAB PO ONE (16:00)
[2018-04-27 04:44] LABS: INR 1.32 (0.83-1.16); PROTIME(PATIENT) 16.6 SEC (12.0-15.0)
[2018-04-27] MEDS: KETOROLAC 15 MG/1 ML SDV IVP SCH (06:10)
[2018-04-27] MEDS: ACETAMINOPHEN 325 MG TAB PO SCH (06:10)
[2018-04-27] MEDS: HEPARIN 5,000 UNIT/0.5 ML INJ SC SCH (06:10)
--- NOTE | 2018-04-27 06:44 | SOAPPROG ---
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 Extubated in the OR. Stable early postop course. Small apical PTX due to volume loss, not air leak. No delay in chest tube removal. AF prophylaxis with BB as tolerated. Antithrombotic prophylaxis with Coumadin x 3 months, target INR 2-3, duration 3 months. Acute expected blood loss anemia - Stable. No transfusions required. Plan: Cont metoprolol 12.5 mg BID. Inc coumadin to 5 mg daily. Dispo - Home without services today. 04/27/18 06:41 Subjective: Feels well. Slept better. Breathing easier. Comfortable going home. Objective: Vital Signs Temp Pulse Resp BP Pulse Ox 36.4 C 62 18 135/77 H 95 04/27/18 04:00 04/27/18 04:00 04/27/18 04:00 04/27/18 04:00 04/27/18 04:00 Laboratory Results 04/25/18 06:20 04/24/18 05:20 04/26/18 04/27/18 04/28/18 05:59 05:59 05:59 Intake Total 760 736 Output Total 1300 575 Balance -540 161 PT 16.6 SEC (12.0-15.0) H 04/27/18 04:00 INR 1.32 (0.83-1.16) H 04/27/18 04:00 HR well controlled. SBPs generally 110s. Borderline suppl O2 req. Within 1 kg admit wt. INR slow to rise. Physical Exam - Physical Exam General Appearance: alert, no apparent distress Respiratory: crackles (rt base, o/w CTA), other (rt thoracot CDI) Cardiac/Chest: regular rate, rhythm Abdomen: non-tender, soft Skin: warm/dry Extremities: other (no visible edema) ICD10 Worksheet Patient Problems: Problems Problem Status Onset Acute blood loss anemia Acute Coronary artery disease excluded Acute S/P mitral valve repair Acute ~04/22/18 S/P thoracotomy Acute ~04/22/18 Myxomatous mitral valve regurgitation Chronic
--- NOTE | 2018-04-27 08:32 | PDDCSUM ---
Discharge Summary Discharge Summary: ADMISSION DATE: 04/21/18 DISCHARGE DATE: 04/27/18 DISCHARGE DIAGNOSES 1. Severe mitral regurgitation 2. Acute blood loss anemia PROCEDURES 04/22/18, Chris Alcaraz: 1. Rt thoracotomy MV repair w goretex chordal reconstruction & #34 ring annuloplasty, CPB via left fem vessels (closed primarily), prophylactic Atriclip exclusion left atrial appendage HPI 72M admitted in advance of mitral valve repair surgery; found to have angiographically normal coronary arteries. HOSPITAL COURSE BY PROBLEM LIST 1. Severe mitral regurgitation - stable s/p repair. Antithrombotic prophylaxis with Coumadin x 3 months, target INR 2-3. 2. Acute blood loss anemia - stable without the need for transfusions. CONDITION Good PERTINENT DISCHARGE CLINICAL INFORMATION Vitals: 115/65, 72 SR, 92% on RA, +2kg Exam: S1S2, No resp distress, ND, soft, NTP, LE with no edema BL Labs: INR 1.32 DISPOSITION Home, self-care ACTIVITY Pt was instructed on sternal precautions, activity limitations, and which problems to call [facility] with. Please see Discharge Plan in chart for specifics. DISCHARGE MEDICATIONS Continue: Aspirin [Aspirin 81mg (*)] 81 mg PO DAILY Cholecalciferol Vit D3 [Vitamin D3 (*)] 1,000 units PO DAILY Finasteride [Proscar 5 MG (*)] 5 mg PO DAILY Tamsulosin HCl [Flomax 0.4 MG (*)] 0.4 mg PO DAILY New: Acetaminophen [Tylenol 325mg (*)] 650 mg PO Q6HRS Metoprolol Tartrate [Lopressor 25 mg (*)] 12.5 mg PO BID Warfarin Sodium [Coumadin 5MG (*)] 5 mg PO DAILY AT 4PM Stop n/a PENDING STUDIES/LABS 1. CXR prior to surgical follow-up 2. INR Friday as per [facility] FOLLOW-UP 1. Chris Alcaraz, 05/05/18, 10:15 AM 2. Karley Meier, as directed
[2018-04-27 08:42] VITALS: BP 115/65
[2018-04-27] MEDS: METOPROLOL TARTRATE 25 MG TAB PO SCH (08:47)
[2018-04-27] MEDS: CHOLECALCIFEROL VIT D3 1,000 UNITS TAB PO SCH (08:47)
[2018-04-27] MEDS: FINASTERIDE 5 MG TAB PO SCH (08:48)
[2018-04-27] MEDS: ASPIRIN 81 MG CHEWABLE TAB PO SCH (08:49)
[2018-04-27] MEDS: TAMSULOSIN HCL 0.4 MG CAP PO SCH (08:49)
[2018-04-27] MEDS: PANTOPRAZOLE SODIUM 40 MG TAB PO SCH (08:50)
--- NOTE | 2018-04-27 12:08 | ASDISCHSUM ---
Discharge Information Plan Status:Home with No Needs Medically Cleared to Leave:04/27/2018 Discharge Date:04/27/2018 11:00 AM CM D/C Disposition:Home, Routine, Self-Care ADT D/C Disposition:Home, Routine, Self-Care Projected Discharge Date:04/27/2018 11:00 AM Transportation at D/C:Family Discharge Delay Reason: Follow-Up Date:04/27/2018 11:00 AM Discharge Slot: Final Diagnosis: Placement Information Patient Contact Information Contact Name:EZEKIEL Relationship: Address:[address] City:[place] Alternate Phone: State/Zip Code:[place] [address] Email: Financial Information Financial Class:Medicare Advantage Plans Primary Plan Desc:[facility] [employer] Primary Plan Number:[id number] Secondary Plan Desc: Secondary Plan Number: Assessment Information LACE LACE Length of stay for Answers: 4-6 days current admission Acuity / Level of Answers: Yes Care: Did the patient have an inpatient admission? Comorbidities - select Answers: Other Notes: MV repair all that apply # of Emergency department Answers: 0 visits in the last 6 months Score: 8 Date Signed: 04/27/2018 12:05 PM Electronically Signed By:Sharyn Vora RN [facility] Initial CM Assessment Living Arrangements What is your living Answers: With Spouse arrangement? Who do you live with? Type Of Residence What kind of residence do Answers: House you live in? Discharge Plan Comments Coordination Status Comments Notes: Patient is a 72yo male who was admitted for severe mitral insufficiency and the need for surgery. OT/PT have been ordered for patient. Patient is most likely going to need cardiac rehab. Surgery was today with Dr. Alcaraz. D/C needs TBD. CM will follow. Date Signed: 04/22/2018 04:25 PM Electronically Signed By:Leatha Nava LCSW [facility] CM Progress Note CM Note CM Note Notes: 04/25/2018 Case Management Note Reviewed chart. PT recommending home and outpatient rehab. Case Management d/c poc: Cardiac outpatient rehab. Case Management to follow. Date Signed: 04/25/2018 02:15 PM Electronically Signed By:Sharyn Vora RN Case Management Discharge Plan Note Case Management Discharge Discharge Order Complete? Answers: Yes Patient to Obtain Answers: via Family Medications Transportation Arranged Answers: Family/Friends Discharge Comments Notes: 04/27/2018 Case Management Note Pt discharged home with family support and cardiac outpatient rehab. Date Signed: 04/27/2018 12:07 PM Electronically Signed By:Sharyn Vora RN Intervention Information Intervention Type:*IM-Signed Date of Service:04/27/2018 10:35 AM Patient Type:Inpatient Staff Member:Nubia Smith Hours: Discipline: Severity: Comment:
[2018-04-27] MEDS ORDERED: WARFARIN SODIUM 5 MG TAB PO SCH (16:00)
== END 2018-04-27 11:00 | disposition home or self-care (01) | DRG 217 ==
LOC: FCATH 11:44 → F2W 13:21 → F2N 04-22 07:42 → F2W 04-23 09:39
PROVIDERS: ADMIT Thoracic Surgery (Cardiothoracic Vascular Surgery); ATTEND Thoracic Surgery (Cardiothoracic Vascular Surgery)
PROC: B2111ZZ Fluoroscopy of Multiple Coronary Arteries using Low Osmolar Contrast (ICD-10-PCS; 2018-04-21)
PROC: 4A023N8 Measurement of Cardiac Sampling and Pressure, Bilateral, Percutaneous Approach (ICD-10-PCS; 2018-04-21)
PROC: 02UG0JZ Supplement Mitral Valve with Synthetic Substitute, Open Approach (ICD-10-PCS; principal; 2018-04-22 08:15)
PROC: 02L70CK Occlusion of Left Atrial Appendage with Extraluminal Device, Open Approach (ICD-10-PCS; principal; 2018-04-22 08:15)
DX: I34.0 Nonrheumatic mitral (valve) insufficiency (principal); D62 Acute posthemorrhagic anemia; I10 Essential (primary) hypertension; E78.5 Hyperlipidemia, unspecified; I73.00 Raynaud's syndrome without gangrene; G25.0 Essential tremor; I47.1 Supraventricular tachycardia; Z79.82 Long term (current) use of aspirin; Z87.442 Personal history of urinary calculi
CPT/HCPCS: 82435-PO; 82565-PO; 82947-PO; 83605-PO; 84132-PO; 84295-PO; 84520-PO; 85014-PO; 97116-GP; 97161-GP; 97165-GO; 97530-GP; 97535-GO; C1760; G8978-GP-CJ; G8979-GP-CI; G8987-GO-CJ; G8988-GO-CI; G8989-GO-CI; J0153; J0171; J0282; J0690; J1100; J1170; J1265; J1644; J1815; J1885; J2001; J2150; J2250; J2260; J2270; J2370; J2405; J2704; J2720; J2765; J2930; J3010; J3475; J3480; P9041; Q9967

== ENCOUNTER → 2018-05-04 | Outpatient (CLI) | payer OTHER | LOC: FIMAGING 10:12 | PROVIDERS: ATTEND Thoracic Surgery (Cardiothoracic Vascular Surgery) | DX: Z98.890 Other specified postprocedural states (principal); J43.9 Emphysema, unspecified ==